=== PATIENT | male | born 1955 | race Caucasian/White ===

== ENCOUNTER 2023-07-03 08:57 | Day surgery (SDC) | payer OTHER, SELFPAY ==
[2023-07-03] VITALS (22 sets, daily range): BP systolic 113–154; BP diastolic 68–98; PULSE 53–94; RESP 16–18; TEMP 35.4–36.9; O2SAT 92–100; BMI 31.6
[2023-07-03] MEDS: CELECOXIB 200 MG CAPSULE PO ×2 (09:07→20:36)
[2023-07-03] MEDS: ACETAMINOPHEN 500 MG TABLET 1000 MG PO ×2 (09:07→18:20)
[2023-07-03] MEDS: OXYCODONE (CR) 10 MG TAB.ER.12H PO (09:07)
[2023-07-03] MEDS: LACTATED RINGERS 1000 ML 1,000 ML 100 ML IV (09:10)
--- NOTE | 2023-07-03 09:23 | W.PM.H&PU ---
History & Physical Update History & Physical Update H&P Reviewed and patient assessed: No changes noted
--- NOTE | 2023-07-03 09:24 | CRLHL7_ITS ---
For Patients: As a result of the Cures Act, medical imaging exams and procedure reports are released immediately into your electronic medical record. You may view this report before your referring provider. If you have questions, please contact your health care provider. Indication: LT POST OP TKA Technique: Two views left knee Findings/Impression: Hardware from a left total knee arthroplasty is in satisfactory position. Bone alignment is normal. No sign of acute fracture. Postop changes are within normal limits. Dictated by Kwabena Comer MD @ 07/04/2023 8:58:40 AM (Electronically Signed)
--- NOTE | 2023-07-03 09:24 | CRLHL7_ITS ---
For Patients: As a result of the Cures Act, medical imaging exams and procedure reports are released immediately into your electronic medical record. You may view this report before your referring provider. If you have questions, please contact your health care provider. Indication: POST OP RT KNEE TKA Technique: Two views right knee Findings/Impression: Hardware from a right total knee arthroplasty is in satisfactory position. Bone alignment is normal. No sign of acute fracture. Postop changes are within normal limits. Dictated by Kwabena Comer MD @ 07/04/2023 8:59:19 AM (Electronically Signed)
[2023-07-03] MEDS: SODIUM CHLORIDE 0.9 % (FLUSH) 10 ML SYRINGE IVF (10:06)
[2023-07-03] MEDS: MIDAZOLAM HCL 1 MG/ML inj IVP (10:30)
[2023-07-03] MEDS: fentaNYL 100 MCG/2 ML inj IVP (10:30)
--- NOTE | 2023-07-03 10:36 | P.NB_ITS ---
Nerve Block Nerve Block Time Seen by Provider: 10:35 Date Seen: 07/03/23 Type of block requested by surgeon for post-operative analgesia: adductor canal Side: bilateral Time out performed: Yes Verification of patient name: Yes Verification of date of : Yes Site marking: site marked Name of person performing procedure: Vito Assistants, if any: Woody Continuous monitoring Was continuous monitoring of O2 sat, B/P, traffic monitor specialist, recorded every 15 minutes?: Yes Procedure Checklist: sterile prep, needles and gloves Ultrasound guided. Images saved: Yes Medications given in 5ml increments after negative aspiration: Ropivicaine %: 0.5 mL: 20 Needle gauge: 20 Decadron (mg): 10 Precedex (mcg): 25 Patient tolerated procedure well: Yes Additional comments: Needle noted adjacent to nerve Block Charges Block Charge (with Pro Fee): Femoral Nerve Use of Ultrasound Machine for Block: Yes- US Guidance/pain block
--- NOTE | 2023-07-03 10:36 | SUR.PREOP ---
TIME?OUT:?1028 PT/RN/MDA?VERIFICATION?OF?SURGICAL?SITE Bilateral Knee's,?PROCEDURE Adductor Canal Block,?AND?CONSENT OBTAINED?PRIOR?TO?INVASIVE?PROCEDURE.
--- NOTE | 2023-07-03 10:38 | W.PM.NB ---
Nerve Block Nerve Block Time Seen by Provider: 10:35 Date Seen: 07/03/23 Type of block requested by surgeon for post-operative analgesia: geniculars Side: bilateral Time out performed: Yes Verification of patient name: Yes Verification of date of : Yes Site marking: site marked Name of person performing procedure: Vito Assistants, if any: Woody Continuous monitoring Was continuous monitoring of O2 sat, B/P, environmental monitoring specialist, recorded every 15 minutes?: Yes Procedure Checklist: sterile prep, needles and gloves Medications given in 5ml increments after negative aspiration: Ropivicaine %: 0.5 mL: 9 Needle gauge: 25 Patient tolerated procedure well: Yes Block Charges Block Charge (with Pro Fee): Genicular Nerve Block Use of Ultrasound Machine for Block: No
--- NOTE | 2023-07-03 10:38 | W.ANESCHARGE ---
Anesthesia Charges Start Date/Time Anesthesia Start Date: 07/03/23 Anesthesia Start Time: 10:53 Stop Date/Time Anesthesia Stop Date: 07/03/23 Anesthesia Stop Time: 15:35
--- NOTE | 2023-07-03 14:49 | P.ORPRC_ITS ---
Procedure Note Date of procedure: 07/03/23 Procedure: PREOPERATIVE DIAGNOSIS: 1. Right knee osteoarthritis, secondary, severe 2. Left knee osteoarthritis, primary, severe 3. Right knee retained deep implant (screws in both proximal tibia and distal femur for prior ACL reconstruction) POSTOPERATIVE DIAGNOSIS: 1. Right knee osteoarthritis, secondary, severe 2. Left knee osteoarthritis, primary, severe 3. Right knee retained deep implant (screws in both proximal tibia and distal femur for prior ACL reconstruction) PROCEDURE: 1. Right total knee arthroplasty 2. Left total knee arthroplasty 3. Right removal of deep implant (proximal tibia and distal femur-ACL screws from remote surgery) SURGEON: Tae George MD. BUFFING MACHINE OPERATOR: Jason Clifford PA-C; Andrew VITAL - Of note, an child welfare assistant was critical for this case to aid in patient positioning, tissue retraction, limb ma nipulation/positioning, patient safety, and closure. ANESTHESIA: General anesthetic IMPLANTS: DePuy J&J uncemented femur and tibia, cemented patella - Press-Fit Attune Right: PS femur size 8, tibia size 8, 8 mm poly spacer, 41 mm patella Left: PS femur size 8 it, tibia size 8, 5 mm poly spacer, 41 mm patella TOURNIQUET: 75 min on the right at 300 torr; 90 min on the left at 300 torr COMPLICATIONS: None evident INDICATIONS: The patient is a pleasant 68-year-old male who has experienced severe bilateral knee pain and difficulty bearing weight. Workup included x- rays which revealed severe osteoarthrosis in both knees. Given the deformity, the dysfunction, and the pain, as well as the failure of nonoperative management, recommendation was made for surgery. DESCRIPTION OF PROCEDURE: Following a thorough discussion of risks, benefits, and alternatives consent was obtained and the right knee was marked. The patient was brought to the operating room and placed supine on the operating table. Induction of anesthesia was undertaken. 2 g IV Ancef and 1 g tranexamic acid was administered within 1 hr of incision preoperatively. An additional 1 g IV Ancef was administered within 10 min of starting the 2nd side. Proper time- out was performed identifying proper patient, site, procedure. Bilateral operative extremities were prepped and draped in the appropriate sterile fashion using ChloraPrep after the patient was positioned supine with all bony prominences well padded. The left leg was initially covered with an extra draped and we began on the right TKA. A longitudinal, anterior, midline skin incision was made starting approximately 3cm proximal to the superior pole of the patella and advanced distal to the tibial tubercle. Severe, extreme osteoarthritis with complete loss of chondral surfaces in all 3 compartments. Retained distal femoral screw proximal tibial screw were in our way the implant position thus these required removal. A median parapatellar arthrotomy was created and a large effusion evacuated. A medial subperiosteal sleeve was created with knife, nieto elevator and curved osteotome. The retropatellar fat pad was resected and the synovium in the suprapatellar pouch excised to visualize the anterior femoral cortex. Femoral preparation was performed via an intramedullary guide. Step drill allowed access into the femoral canal. The canal was suctioned, irrigated, suction, and this process repeated. The distal cutting guide was placed with 5 ? of valgus and 12 mm cut on the distal femur due to significant flexion contracture. Femur was sized using a posterior referencing guide in 3? of external rotation based on the posterior femoral condylar axis and trans epicondylar access/Whitesides line . This found have a best fit with the sizing noted above. The 4 in 1 cutting block was then placed, and the distal femur shaped accordingly. The box cut was then created and the trial implant inserted to confirm appropriate fit. We turned our attention to the proximal tibia. Extramedullary guide was utilized for cutting with the goal of being 90 degree cut from the mechanical axis of the tibia in the varus/valgus plane utilizing tibial crest as the primary alignment. Initially a 1 mm resection was performed from the medial tibial plateau. Ultimately, balancing was achieved in both flexion and extension in both varus and valgus. The knee was able to achieve full extension as well comfortably. The patella was initially measured and found have a thickness of 23 mm. It was resected back to approximately 14 mm. It was sized to be a best fit with as noted above. This was drilled, trial placed. All trials were placed and found to have an excellent stability and balance. At this stage, trial implants were removed, the knee was thoroughly irrigated with normal saline after injecting the posterior capsule with Marcaine with epi, and the cement was mixed. After irrigation, the knee was thoroughly dried, and cement placed, with the real tibial and femoral implants placed along with the patella. Trial poly spacer was placed and confirmed to have excellent range of motion and full extension, and the real poly spacer opened and inserted. All extra cement was removed, and a 3 min Betadine soak performed. Finally, a final irrigation round with normal saline was performed. Closure performed with 0 Vicryl and #0 Stratafix for the quad tendon/retinaculum. The tourniquet was deflated, and 2-0 Vicryl for the subcutaneous and 4-0 Monocryl for subcuticular closure was completed. Dressings were applied and attention was turned to the contralateral left side. This same process was utilized on the contralateral side including same approach, same dissection, same femoral tunnel access and irrigation, extramedullary guide for the tibia, with a similar process for cutting depths, and sizing of femoral & tibial implants. Of note, this contralateral knee also showed severe tricompartmental chondromalacia/chondral loss with grooving of the femoral condyle. There is also abundant distal quadriceps tendinosis and thickening. Large effusion upon entering the joint. Multiple loose bodies seen within this knee consistent with the contralateral knee which also showed multiple loose bodies. The knee was placed through range of motion found to be stable to varus and valgus stress at 0 and 30? as well as with anterior superintendent meter tests all ranges at 15 -30 degree increments. Again a 3 min Betadine soak was performed when the real poly had been opened and inserted, and all remaining cement had been removed. Finally, final round of irrigation was completed with normal saline and closure performed as above with 0 Vicryl, # 0 Stratafix for the quad tendon/retinaculum, 2-0 Vicryl for subcutaneous and 4-0 Monocryl for subcuticular closure. PLAN: 1. Weight bear as tolerated operative extremities. 2. 23 hr perioperative antibiotics. 3. Ice. 4. PT/OT consults for ambulation assistance/mobility education. 5. Social work consult for discharge planning. 6. DVT prophylaxis with at SCDs, Scotty Hose, and aspirin twice daily.
--- NOTE | 2023-07-03 15:44 | W.ANESCHARGE ---
Anesthesia Charges Start Date/Time Anesthesia Start Date: 07/03/23 Anesthesia Start Time: 10:53 Stop Date/Time Anesthesia Stop Date: 07/03/23 Anesthesia Stop Time: 15:35
--- NOTE | 2023-07-03 16:32 | PM.IMCN1 ---
Date of Consult Patient: Other Consult date: 07/03/23 Primary Care Provider: Not a Local Provider ([place] at [facility]) Consult Narrative Reason for consult: Medical management of comorbidities Narrative: Efra Garcia is a 68 year old male who presented to the hospital today for elective bilateral TKAs. There were no surgical or anesthetic complications noted during procedure. Patient's H&P reviewed, PCP is Dr. Echavarria at [facility] (moved to [place] from [place], [place] approximately 4 months ago - plans to establish care with PCP locally). Past medical history significant for: HTN, hyperlipidemia, OA, SUMAYA on CPAP. History of blood clots: No Postoperative plan: Home with , daughter and family also live locally. Review of Systems Status of ROS: Reports: 10 or more systems reviewed and unremarkable except as noted in History and below [facility] Medical History Sleep apnea ?G47.30 - Sleep apnea, unspecified (ICD-10) High cholesterol ?E78.00 - Pure hypercholesterolemia, unspecified (ICD-10) Hypertension ?I10 - Essential (primary) hypertension (ICD-10) Surgical History (Updated 07/03/23 @ 16:56 by Ann-Marie Whitehead MD) Hx of wisdom tooth extraction ?K08.409 - Partial loss of teeth, unspecified cause, unspecified class (ICD-10) Hx of tonsillectomy ?Z90.89 - Acquired absence of other organs (ICD-10) S/P lateral meniscectomy of left knee ?Z98.890 - Other specified postprocedural states (ICD-10) S/P ACL reconstruction ?Z98.890 - Other specified postprocedural states (ICD-10) Social History What is your current living situation?: I presently have a place to live Problems where you live: declined to answer Problems where you live details: NA In the past 12 months, utilities in danger of being shut off: no In the past 12 mos, have been you worried that your food would run out before you had money to buy more?: never true In the past 12 mos, the food you bought just didn't last and you didn't have money to buy more?: never true Smoking Status: Never smoker How often do you have a drink containing alcohol: monthly or less How many standard drinks containing alcohol do you have on a typical day: 1 or 2 AUDIT-C Alcohol total score: 1 Non-prescribed substance use: denies use Caffeine: Yes How often does anyone, including family, friends and others, physically hurt you: never How often does anyone, including family, friends and others, insult or talk down to you: never How often does anyone, including family, friends and others, threaten you with harm: never How often does anyone, including family, friends and others, scream or curse at you: never service: No Meds Home Medications and Allergies Home Medications Medication Instructions Recorded Confirmed Type atorvastatin 20 mg tablet 20 mg PO DAILY 06/14/23 07/03/23 History hydrochlorothiazide 25 mg tablet 25 mg PO DAILY 06/14/23 07/03/23 History lisinopril 10 mg tablet 10 mg PO DAILY 06/14/23 07/03/23 History naproxen sodium 220 mg tablet 220 mg PO BID PRN 06/14/23 07/03/23 History (Aleve) Allergies Allergy/AdvReac Type Severity Reaction Status Date / Time No Known Drug Allergies Allergy Verified 07/03/23 09:18 Exam Narrative: Exam Narrative: GEN: Alert and oriented, sitting up in bed and answering questions appropriately HEENT: EOMIs bilaterally, no scleral icterus. Mild conjunctival injection on the left, patient asymptomatic CV: RRR, No concerning murmurs R: LCTA bilaterally without concerning wheezing, breathing comfortably Ext: wearing Scotty hose bilaterally Skin: No concerning skin lesions or rashes on exposed skin Neuro: Nonfocal Psych: Appropriate Const: Vital Signs, click to edit/add: Vital Signs - 24 hr 07/03/23 09:26 07/03/23 09:27 07/03/23 10:30 Temperature 98.4 F Pulse Rate 57 L 59 L 56 L Respiratory Rate 16 16 16 Blood Pressure 154/84 H 123/74 113/74 Pulse Oximetry 95 95 94 Oxygen Delivery Me thod Room Air Nasal Cannula Nasal Cannula Oxygen Flow Rate 2 2 07/03/23 10:35 07/03/23 15:31 07/03/23 15:36 Temperature 97 F L Pulse Rate 53 L 78 77 Respiratory Rate 16 16 16 Blood Pressure 126/75 118/73 114/72 Pulse Oximetry 96 97 99 Oxygen Delivery Me thod Nasal Cannula OxyMask OxyMask Oxygen Flow Rate 2 10 10 07/03/23 15:41 07/03/23 15:46 07/03/23 15:51 Temperature Pulse Rate 77 71 76 Respiratory Rate 16 16 16 Blood Pressure 131/68 138/85 138/90 H Pulse Oximetry 99 100 100 Oxygen Delivery Me thod OxyMask OxyMask OxyMask Oxygen Flow Rate 10 8 6 07/03/23 15:56 07/03/23 16:01 07/03/23 16:09 Temperature 97 F L Pulse Rate 72 70 73 Respiratory Rate 16 16 16 Blood Pressure 132/85 114/87 132/94 H Pulse Oximetry 100 100 100 Oxygen Delivery Me thod OxyMask Room Air Room Air Oxygen Flow Rate 4 Assessment and Plan Assessment and plan (1) Status post bilateral knee replacements: Problem comment: - 07/03/23, Dr. George Status: Acute Plan - pain management and prophylaxis per orthopedic surgery team - continue home medications for comorbidities - anticipate routine postoperative course
[2023-07-03] MEDS: OXYCODONE 5 MG TABLET PO (18:21)
[2023-07-03] MEDS: CEFAZOLIN 2 GM in 0.9 % SODIUM CHLORIDE Mini-bag 100 ML IVPB (18:22)
[2023-07-03] MEDS: LACTATED RINGERS 1000 ML 1,000 ML 75 ML IV (18:23)
[2023-07-03] MEDS: ONDANSETRON 2 MG/ML inj 4 MG IVP (18:26)
--- NOTE | 2023-07-03 19:06 | PC.NURSE ---
shift note: pt from pacu @ 1620 via bed a&o x3. pt placed on postop vss and cont sats. pt vss stable. pt on RA 93-95%. Pt o/10 pain till 1820 then pain changed to 4/10 bilat knees. pt medicated with prn oxycodone & scheduled tylenol. Pt placed on sachin hugger due to shivering @ 1730. bilat knee drsg c/d/i with cryo cuff in place. PP+ bilat and cap refill + bilat. LS clr. Pt tolerated regular diet. IV patent Lt hand. at bedside.
[2023-07-03] MEDS: HYDROmorphone 0.5 mg/0.5 ml inj IVP (19:39)
[2023-07-03] MEDS: SENNOSIDES 1 TAB TABLET 2 TAB PO (20:35)
[2023-07-03] MEDS: ASPIRIN 81 MG TABLET EC PO (20:36)
[2023-07-04] MEDS: ACETAMINOPHEN 500 MG TABLET 1000 MG PO ×3 (00:01→11:41)
[2023-07-04] MEDS: CEFAZOLIN 2 GM in 0.9 % SODIUM CHLORIDE Mini-bag 100 ML IVPB ×2 (02:24→09:48)
[2023-07-04 03:23] VITALS: BP 116/69; PULSE 96; RESP 18; TEMP 36.8; O2SAT 95
[2023-07-04 06:36] LABS: Basophils Absolute Auto 0.01 K/uL (0.00-0.30); Basophils Percent Auto 0.1 % (0.0-3.0); Hematocrit 36.4 % (37.0-53.0); Hemoglobin* 12.5 gm/dL (13.5-17.5); Immature Granulocytes Abs Auto 0.01 K/uL (0.00-0.30); Immature Granulocytes Pct Auto 0.1 %; Mean Corpuscular HGB Conc 34 gm/dL (32-36); Mean Corpuscular Hemoglobin 32 pg (26-34); Mean Corpuscular Volume 92 fL (80-100); Monocytes Percent Auto 12.1 % (0.0-11.0); Neutrophils Percent Auto 77.7 % (42.0-72.0); Platelet Count* 165 K/uL (140-440); RDW Coefficient of Variation % 12.8 % (11.5-15.5); Red Blood Count 3.96 m/uL (4.30-5.90); White Blood Count* 10.69 K/uL (4.50-11.00)
[2023-07-04 06:37] LABS: Slide Review Reflex No
[2023-07-04 06:48] LABS: Potassium* 3.9 mmol/L (3.6-5.1); Sodium* 135 mmol/L (135-149)
[2023-07-04 06:51] LABS: Blood Urea Nitrogen* 23 mg/dL (7-30); Creatinine* 1.1 mg/dL (0.5-1.5); Est. Creatinine Clearance* 70.36; Estimated Glomerular Filt Rate 74 ml/min
--- NOTE | 2023-07-04 07:00 | PC.NURSE ---
Shift note: Pt is doing will. At 1999, pt attempted to use the BR but was unable ambulate. In effect, preferred to use urinal at the side of the bed. The second attempt at 329 was possible with A2, walker, and GB. Pain level has been rated at 3 managed with scheduled Tylenol. Adequate oral intake and urine output. Saline locked.
[2023-07-04] MEDS: OXYCODONE 5 MG TABLET PO ×3 (08:03→15:41)
--- NOTE | 2023-07-04 08:16 | PM.ORPN ---
Subjective Subjective Date Seen: 07/04/23 Principal diagnosis: Status postop day 1 bilateral total knee arthroplasty Interval history: Patient reports doing well. No acute events over night. His pulses present. Nurse reports assist of 2 to the restroom, doing quite well, minimal pain reports. Proximal aspect of the left knee more painful compared to right. Pain managed with scheduled and PRN medications, ice. DVT prophylaxis: 81 mg aspirin by mouth twice daily, bilateral knee high Scotty stockings, SCDs, walking. Denies fevers, chills, aches, N/V, CP, SOB/DOMINIQUE, or lightheadedness. Ortho Exam Narrative Exam Narrative: -Patient appears comfortable; no apparent acute distress -Alert and oriented times 3 -Bilateral knees mildly swollen; soft tissues supple; no ecchymosis; no erythematous streaking Warmth appropriate. -Surgical dressings clean, dry, intact; no drainage -Bilateral calfs soft; no significant swelling, edema, tenderness, erythema, discoloration, warmth, or palpable cords -2+ DP/PT pulses, intact dermatomes and myotomes distally (5/5 strength). Positive bilateral active quad stimulation Const Vital Signs, click to edit/add: Vital Signs - 24 hr 07/03/23 09:26 07/03/23 09:27 07/03/23 10:30 Temperature 98.4 F Pulse Rate 57 L 59 L 56 L Pulse Rate [Pulse Oximeter] Respiratory Rate 16 16 16 Blood Pressure 154/84 H 123/74 113/74 Blood Pressure [Right Arm] Pulse Oximetry 95 95 94 Oxygen Delivery Method Room Air Nasal Cannula Nasal Cannula Oxygen Flow Rate 2 2 07/03/23 10:35 07/03/23 15:31 07/03/23 15:36 Temperature 97 F L Pulse Rate 53 L 78 77 Pulse Rate [Pulse Oximeter] Respiratory Rate 16 16 16 Blood Pressure 126/75 118/73 114/72 Blood Pressure [Right Arm] Pulse Oximetry 96 97 99 Oxygen Delivery Method Nasal Cannula OxyMask OxyMask Oxygen Flow Rate 2 10 10 07/03/23 15:41 07/03/23 15:46 07/03/23 15:51 Temperature Pulse Rate 77 71 76 Pulse Rate [Pulse Oximeter] Respiratory Rate 16 16 16 Blood Pressure 131/68 138/85 138/90 H Blood Pressure [Right Arm] Pulse Oximetry 99 100 100 Oxygen Delivery Method OxyMask OxyMask OxyMask Oxygen Flow Rate 10 8 6 07/03/23 15:56 07/03/23 16:01 07/03/23 16:09 Temperature 97 F L Pulse Rate 72 70 73 Pulse Rate [Pulse Oximeter] Respiratory Rate 16 16 16 Blood Pressure 132/85 114/87 132/94 H Blood Pressure [Right Arm] Pulse Oximetry 100 100 100 Oxygen Delivery Method OxyMask Room Air Room Air Oxygen Flow Rate 4 07/03/23 16:20 07/03/23 16:20 07/03/23 16:20 Temperature 96.1 F L 96.1 F L 96.1 F L Pulse Rate 73 Pulse Rate [Pulse Oximeter] 74 74 Respiratory Rate 16 16 16 Blood Pressure Blood Pressure [Right Arm] 142/87 H 142/87 H 142/87 H Pulse Oximetry 93 93 Oxygen Delivery Method Room Air Room Air Room Air Oxygen Flow Rate 07/03/23 16:35 07/03/23 16:50 07/03/23 16:50 Temperature 96 F L 96 F L 97 F L Pulse Rate Pulse Rate [Pulse Oximeter] 74 74 77 Respiratory Rate 16 16 16 Blood Pressure Blood Pressure [Right Arm] 142/87 H 146/98 H 146/98 H Pulse Oximetry 94 97 95 Oxygen Delivery Method Room Air Room Air Room Air Oxygen Flow Rate 07/03/23 17:05 07/03/23 17:20 07/03/23 17:50 Temperature 97 F L 97 F L 97 F L Pulse Rate Pulse Rate [Pulse Oximeter] 79 76 94 Respiratory Rate 16 18 18 Blood Pressure Blood Pressure [Right Arm] 142/92 H 147/85 H 119/87 Pulse Oximetry 97 94 94 Oxygen Delivery Method Room Air Room Air Room Air Oxygen Flow Rate 07/03/23 18:20 07/03/23 19:00 07/03/23 20:00 Temperature 95.8 F L 97 F L 97.2 F L Pulse Rate Pulse Rate [Pulse Oximeter] 92 81 93 Respiratory Rate 18 18 18 Blood Pressure Blood Pressure [Right Arm] 131/93 H 129/80 122/73 Pulse Oximetry 95 94 92 Oxygen Delivery Method Room Air Room Air Room Air Oxygen Flow Rate 07/03/23 23:00 07/04/23 03:23 Temperature 98.2 F Pulse Rate Pulse Rate [Pulse Oximeter] 96 Respiratory Rate 18 Blood Pressure Blood Pressure [Right Arm] 116/69 Pulse Oximetry 97 95 Oxygen Delivery Method Room Air Oxygen Flow Rate Assessment and Plan Assessment and plan (1) Status post bilateral knee replacements: Problem details: - 07/03/23, Dr. George Status: Acute Plan - Complete 23 hour perioperative antibiotics. - PT/OT consult for education and assistance. - Social work consult for discharge planning - Prescribed analgesics as needed - DVT prophylaxis: 81 mg aspirin by mouth twice daily, bilateral knee high Scotty Hose stockings and SCDs - Anticipation is for discharge to home with spouse either today (07/04/23) or tomorrow (07/05/23) if the patient remains medically stable, pain is controlled, and they are safe with mobilization. We will see how he does with PT/OT today to determine if he may discharge today or tomorrow. Patient has a few steps in his home to navigate.
[2023-07-04 08:54] VITALS: BP 114/65; PULSE 98; RESP 18; TEMP 36.9; O2SAT 96
[2023-07-04 08:56] VITALS: O2SAT 96
[2023-07-04] MEDS: CELECOXIB 200 MG CAPSULE PO (09:47)
[2023-07-04] MEDS: ASPIRIN 81 MG TABLET EC PO (09:48)
[2023-07-04] MEDS: SENNOSIDES 1 TAB TABLET 2 TAB PO (09:48)
[2023-07-04 12:20] VITALS: BP 122/65; PULSE 71; RESP 18; TEMP 36.6; O2SAT 94
--- NOTE | 2023-07-04 12:55 | PC.NURSE ---
shift note: vss stable. bilat knee drsg c/d/i with cryo cuff in place. PP+ bilat. pt states pain 1-3/10 this a.m and was medicated prior to therapies with pain reported 1-2/10. Pt reported slight nausea this afternoon. Pt received oscar carol and soda crackers.
--- NOTE | 2023-07-04 15:47 | PC.NURSE ---
shift note: reviewed dc instructions with pt and his spouse. pt medicated with 10 mg oxycodone prior to dc due to 2/10 bilat knee pain. Copies of dc instructions sent with pt at dc. Belongings reviewed with pt and sent with pt at dc. Cryo cuff x2 sent with pt at dc. IV dc'd intact lt hand.
== END 2023-07-04 15:49 | disposition home or self-care (01) ==
LOC: MEDSURG 07-04 08:15 → SS 07-04 15:53 → MEDSURG 07-04 15:53
PROVIDERS: Visit Provider Orthopaedic Surgery Sports Medicine
PROC: 0SRC0JZ Replacement of Right Knee Joint with Synthetic Substitute, Open Approach (ICD-10-PCS; CPT 27447; principal; 2023-07-03 11:00)
DX: M17.0 Bilateral primary osteoarthritis of knee (principal); G89.18 Other acute postprocedural pain; I10 Essential (primary) hypertension; G47.33 Obstructive sleep apnea (adult) (pediatric); Z47.2 Encounter for removal of internal fixation device
CPT/HCPCS: 27447; 20680; 1402; 36415; 64447; 64454; 73560; 76942; 82565; 84132; 84295; 84520; 85025; 97110; 97116; 97161; 97165; 97530; A9270; C1776; C9290; J0171; J0665; J0690; J1170; J2250; J2371; J2405; J2704; J3010; J3490; J7120

== ENCOUNTER 2023-07-11 14:47 | Outpatient (CLI) | payer OTHER, SELFPAY ==
--- NOTE | 2023-07-11 15:00 | CRLHL7_ITS ---
For Patients: As a result of the Century Cures Act, medical imaging exams and procedure reports are released immediately into your electronic medical record. You may view this report before your referring provider. If you have questions, please contact your health care provider. INDICATION: RIGHT LEG PAIN, TKA 07/03/23 COMPARISON: None. TECHNIQUE: A compression venous ultrasound exam was performed of the right lower extremity using de guzman-scale imaging, color Doppler and spectral Doppler analysis. FINDINGS: Sonographic imaging of the right lower extremity demonstrates normal compressibility and color Doppler venous blood flow within the common femoral vein, deep femoral vein, and the proximal greater saphenous vein. Within the thigh, the femoral vein is patent and compressible. At a lower level, the popliteal and posterior tibial veins also show normal compressibility and color Doppler venous blood flow. Limited imaging of the contralateral groin demonstrates a normal spectral waveform and color Doppler venous blood flow within the left common femoral vein. IMPRESSION: Normal venous ultrasound exam. No evidence of deep vein thrombosis within the right lower extremity. Dictated by Kwabena Comer MD @ 07/12/2023 9:23:30 AM (Electronically Signed)
== END 2023-07-11 14:48 | disposition home or self-care (01) ==
LOC: US 14:50
PROVIDERS: Visit Provider Physician Assistant Surgical
DX: M79.604 Pain in right leg (principal); Z96.653 Presence of artificial knee joint, bilateral
CPT/HCPCS: 93971

== ENCOUNTER 2023-08-21 10:15 | Outpatient (RCR) | payer OTHER, SELFPAY ==
--- NOTE | 2023-06-24 09:05 | PT.OPEX ---
PT [place] Outpatient Eval PT [facility] Outpatient Eval Start: 06/24/23 07:24 Freq: Status: Active Protocol: Document 06/24/23 09:00 AMINATA (Rec: 06/24/23 09:05 [email or web address] [id number]) E-signed By Nivia Porras, PT Physical Therapy Outpatient Evaluation Insurance Information Recert Due Date 09/18/23 Insurance Name Medicare B Medical Diagnosis Osmar TKA Pre-Op Treating Diagnosis Osmar knee pain Impaired AROM/strength and walking tolerance Referring MD Dr Tae George Subjective Subjective Efra reports having osmar knee pain for many years. Recent DX of OA, but has had ACL and meniscectomy surgeries as well . He walks without any AD, but has used crutches and cane p/ o previously. 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 His walking tolerance is about 20 minutes, tries to walk 1/2 mile 2X/Day for exercise. He and his live in a rambler - 3 steps in from garage, 1 step threshold step. No railings present. They have 2 bathrooms , one with a tub shower, one with walk in shower. They will have access to 2 different shower chairs. He knows he will not be able to drive p/o, his will bring him to the PT sessions - scheduled for 8 weeks. Pain Comments Moderate. He feels his Lt leg is the stronger leg. Had the ACL surgery previously on his Rt knee He has had LBP for the past 4 months (flare up) since moving to [place] Date of Last Physician Visit 06/12/23 Date of Surgery (If applicable) 07/03/23 Current Work Status Retired Preferred Name Efra Precautions Treatment Precautions/Contraindications High Blood Pressure Hypertension Sleep Apnea Lt knee scope Weight Bearing Status Full Weight Bearing Therapy Limitations/Systems Review Not Limited Objective Range of Motion Rt Knee 10-122 deg Lt Knee 10-108 deg Strength 4-/5 osmar knee flex and ext Swelling Mid Pat girth Rt = 43.4 cm / Lt = 44 cm Balance & Gait symmetric WB, SLS 5 sec average osmar. More flat foot strike due to lacking full ext Posture Flattened lumbar spine Assessment Assessment/Impression 68 yo male with Pre-op DX of Osmar TKA which is scheduled for 07/03/23. He arrived this date via IND ambulation without any AD. He ambulates with flat foot strike, lacking full knee ext by 10 deg osmar. Flattened spine and WBOS. His walking tolerance is reported as 20 min or so. He walks 1/2 mile 2X/Day for ex. He lives with his in a one level rambler. 3 steps in from garage, 1 step at front door. He is able to borrow a walker, toilet raise, shower chair for p/o. His AROM is Rt 10-122 deg and Lt 10-108 deg. Mid pat girth is Rt 43.4 cm and Lt 44 cm. He is aware of p/o short term lifestyle changes, his will be driving him to appointments and monitoring use of ice, meds, home ex, etc. He was educated in/is aware of fall prevention and p /o wound care. He will benefit from further p/o PT for progression of gait/balance and strength/ROM. Thank you for this referral. Primary Functional Limitations Pain Reduced AROM Reduced strength Impaired stand/walk tolerance Plan of Care Rehabilitation Potential Good Physical Therapy Goals In One PT Pre-Op Session, we will complete: 1. Education in HEP. MET 2. Education in Fall prevention. MET 3. Education in Adaptive equipment. MET 4. Post/op therapy progression . MET 5. Ambulation with walker and A/D flight of 5 steps. MET *progressive p/o goals will be set at re-evaluation on Coordination/Communication With Referral Source Treatment Plan/Direct Interventions Gait Training,Ice/Cold/ Vasopneumatic,Joint Mobilization,Manual Therapy, Neuromuscular Re-ed,Self-Care/ Home Management,Therapeutic Activities,Therapeutic Exercises Frequency/Duration 2X/Wk X 8 weeks Patient Will Be Discharged From Therapy Completion of LTG(s),Skills Plateau,Independent w/HEP, Independently Progressing Evaluation Billing Untimed Code Treatment Minutes 20 Complexity Moderate Certification Information Initial Certification Date 06/24/23 Ending Certification Date 09/18/23 Provider Signature Shows Agreement With POC & Medical Necessity Physician Signature & Date Requested Please Sign/Date Here Physician Comment/Change : Physician NPI Number #
== END 2023-08-21 14:37 | disposition home or self-care (01) ==
PROVIDERS: Visit Provider Orthopaedic Surgery Sports Medicine
DX: M17.11 Unilateral primary osteoarthritis, right knee (principal); M25.562 Pain in left knee; M25.561 Pain in right knee; Z47.1 Aftercare following joint replacement surgery; Z96.653 Presence of artificial knee joint, bilateral; R53.1 Weakness; Z51.89 Encounter for other specified aftercare
CPT/HCPCS: 97110; 97116; 97140; 97162; 97164

== ENCOUNTER 2024-07-12 21:05 | Emergency (ER) | payer OTHER, SELFPAY ==
[2024-07-12 21:10] VITALS: BP 143/78; PULSE 67; RESP 16; TEMP 36.7; O2SAT 93; BMI 31.9
--- NOTE | 2024-07-12 21:19 | CRLHL7_ITS ---
For Patients: As a result of the Cures Act, medical imaging exams and procedure reports are released immediately into your electronic medical record. You may view this report before your referring provider. If you have questions, please contact your health care provider. Indication: LT 5TH TOE, R/O POSSIBLE DISLOCATION Technique: Three views of the left 5th toe Comparison: None Findings/Impression: Questionable nondisplaced, obliquely oriented, age-indeterminate fracture of the distal shaft of the left 5th proximal phalanx, to correlate with history and point tenderness. Tiny osseous fragment seen along the base of the proximal 5th phalanx, likely sequela of remote injury. No acute malalignment. 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 No suspicious osseous lesions. There may be mild soft tissue swelling of the 5th digit. Dictated by Chandan Osuna MD @ 07/12/2024 10:12:39 PM (Electronically Signed)
--- NOTE | 2024-07-12 22:10 | ED_ITS ---
HPI - General Adult General Date Seen: 07/12/24 Chief complaint: Extremity Pain/Injury, Lower Stated complaint: dislocated left pinky toe Time Seen by Provider: 07/12/24 21:19 Source: patient Mode of arrival: ambulatory Limitations: no limitations History of Present Illness HPI narrative: Patient is a 69-year-old male who was walking barefoot, stubbed his left 5th toe was worried about possible dislocation because he said it was sticking out funny. He says it looks about the same now as it did earlier, does not sound like there was significant deformity that is now improved. He has some tenderness over the proximal toe, denies other injuries. Related Data Home Medications ?Medication ?Instructions ?Recorded ?Confirmed atorvastatin 20 mg tablet 20 mg PO DAILY 06/14/23 07/12/24 hydrochlorothiazide 25 mg tablet 25 mg PO DAILY 06/14/23 07/12/24 lisinopril 10 mg tablet 10 mg PO DAILY 06/14/23 07/12/24 allopurinol 300 mg tablet 300 mg PO DAILY 07/12/24 07/12/24 Allergies Allergy/AdvReac Type Severity Reaction Status Date / Time No Known Drug Allergies Allergy Verified 07/12/24 21:09 [facility] Medical History Sleep apnea ?G47.30 - Sleep apnea, unspecified (ICD-10) High cholesterol ?E78.00 - Pure hypercholesterolemia, unspecified (ICD-10) Hypertension ?I10 - Essential (primary) hypertension (ICD-10) Surgical History History of bilateral knee replacement (07/03/23) ?Z96.653 - Presence of artificial knee joint, bilateral (ICD-10) Hx of wisdom tooth extraction ?K08.409 - Partial loss of teeth, unspecified cause, unspecified class (ICD- 10) Hx of tonsillectomy ?Z90.89 - Acquired absence of other organs (ICD-10) S/P lateral meniscectomy of left knee ?Z98.890 - Other specified postprocedural states (ICD-10) S/P ACL reconstruction ?Z98.890 - Other specified postprocedural states (ICD-10) Social History (Reviewed 09/14/23 @ 09:14 by Edvin Callahan What is your current living situation?: I presently have a place to live Problems where you live: declined to answer Problems where you live details: NA In the past 12 months, utilities in danger of being shut off: no In past 12 months, lack of transportation kept you from medical appts, meetings, work, or getting things needed for daily living: no In the past 12 mos, have been you worried that your food would run out before you had money to buy more?: never true In the past 12 mos, the food you bought just didn't last and you didn't have money to buy more?: never true Smoking Status: Never smoker How often do you have a drink containing alcohol: monthly or less How many standard drinks containing alcohol do you have on a typical day: 1 or 2 AUDIT-C Alcohol total score: 1 Non-prescribed substance use: denies use Caffeine: Yes How often does anyone, including family, friends and others, physically hurt you : never How often does anyone, including family, friends and others, insult or talk down to you: never How often does anyone, including family, friends and others, threaten you with harm: never How often does anyone, including family, friends and others, scream or curse at you: never service: No Exam Narrative: Exam Narrative: Vital signs reviewed In general, alert, well-appearing elderly male. Extremities: Examination of the left foot shows a little bit of swelling at the base of the 5th toe, some tenderness there. I really do not see any deformity, he has a little bit of valgus deformity in both of his 5th toes, this looks symmetric to me. Skin is intact. Const: Vital Signs, click to edit/add: Vital Signs - 24 hr 07/12/24 21:10 Temperature 98.1 F Pulse Rate [Pulse Oximeter] 67 Respiratory Rate 16 Blood Pressure [Ri ght Upper Arm] 143/78 H Pulse Oximetry 93 Oxygen Delivery Me thod Room Air Documenting provider has reviewed patient's vital signs: yes Course Course ED Course: X-rays of the 5th toe by my review do not appear to show an acute fracture or evidence of dislocation, read as follows by Radiology:Findings/Impression: Questionable nondisplaced, obliquely oriented, age-indeterminate fracture of the distal shaft of the left 5th proximal phalanx, to correlate with history and point tenderness. Tiny osseous fragment seen along the base of the proximal 5th phalanx, likely sequela of remote injury. No acute malalignment. 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 No suspicious osseous lesions. There may be mild soft tissue swelling of the 5th digit. Dictated by Chandan Osuna MD @ 07/12/2024 10:12:39 PM Discussed this with him, we will lawrence tape for comfort. He does not have any tenderness of the distal end of the toe so I do not at this time think that this is an acute fracture. He has tenderness at the base of the toe, but that small bone fragment seems to be related to an old injury. In any case, reassured him there is no evidence of dislocation. He can use Tylenol if needed, lawrence tape for comfort. See primary doctor if concerned regarding healing. Vital Signs Vital signs: Initial Vital Signs Temperature 98.1 F 07/12/24 21:10 Temperature Source Temporal Artery Scan 07/12/24 21:10 Pulse Rate 67 07/12/24 21:10 Respiratory Rate 16 07/12/24 21:10 Blood Pressure 143/78 H 07/12/24 21:10 Blood Pressure Mean 99 07/12/24 21:10 Blood Pressure Position High-Fowlers 07/12/24 21:10 Pulse Oximetry 93 07/12/24 21:10 Oxygen Delivery Method Room Air 07/12/24 21:10 Vital Signs Temperature 98.1 F 07/12/24 21:10 Pulse Rate 67 07/12/24 21:10 Respiratory Rate 16 07/12/24 21:10 Blood Pressure 143/78 H 07/12/24 21:10 Pulse Oximetry 93 07/12/24 21:10 Oxygen Delivery Method Room Air 07/12/24 21:10 Temperature 98.1 F 07/12/24 21:10 Pulse Rate 67 07/12/24 21:10 Respiratory Rate 16 07/12/24 21:10 Blood Pressure 143/78 H 07/12/24 21:10 Pulse Oximetry 93 07/12/24 21:10 Oxygen Delivery Method Room Air 07/12/24 21:10 Discharge Plan Discharge Clinical Impression: Injury of toe on left foot Patient Disposition: Home, Self-Care Condition: Stable Additional Instructions: You can lawrence tape your toes for comfort as long as needed. See primary care if concerned about healing. Prescriptions: No Action lisinopril 10 mg tablet 10 mg PO DAILY hydrochlorothiazide 25 mg tablet 25 mg PO DAILY atorvastatin 20 mg tablet 20 mg PO DAILY allopurinol 300 mg tablet 300 mg PO DAILY Follow Up/Referrals: Grover Alexander MD [Primary Care Provider] - Stand Alone Forms: [employer] Info Instructions
== END 2024-07-12 22:32 | disposition home or self-care (01) ==
PROVIDERS: Emergency Provider Emergency Medicine; PCP Family Medicine
DX: S99.922A Unspecified injury of left foot, initial encounter (principal); W22.8XXA Striking against or struck by other objects, initial encounter
CPT/HCPCS: 73660; 99283

== ENCOUNTER 2025-05-03 09:46 | Emergency (ER) | payer MEDICARE, SELFPAY ==
[2025-05-03] VITALS (16 sets, daily range): BP systolic 87–119; BP diastolic 54–98; PULSE 49–58; RESP 16–18; TEMP 35.8; O2SAT 94–96; BMI 31.9
--- OUTSIDE RECORDS SUMMARY | 2025-05-03 09:53 | XMS_ITS | Clinical Summary ---
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 Active atorvastatin (LIPITOR) 20 mg tabletIndication s:Hypercholester olemia Take 1 Tablet (20 mg) by mouth once daily. For Cholesterol. 90 Tablet 3 5 Active hydroCHLOROthiaz john 25 mg tabletIndication s:Essential hypertension Take 1 Tablet (25 mg) by mouth once daily. For blood pressure. 90 Tablet 3 5 Active lisinopriL (PRINIVIL; ZESTRIL) 10 mg tabletIndication s:Essential hypertension Take 1 Tablet (10 mg) by mouth once daily. For blood pressure. 90 Tablet 3 5 Active allopurinoL (ZYLOPRIM) 300 mg tabletIndication s:History of gout Take 1 Tablet (300 mg) by mouth once daily. To prevent gout. 90 Tablet 3 5 Active indomethacin (INDOCIN) 50 mg capsuleIndicatio ns:Gout involving toe of left foot, unspecified cause, unspecified chronicity Take 1 Capsule (50 mg) by mouth three times daily with meals. For gout, use short term. Up to three times daily and then decrease down to off as soon as possible. 21 Capsule 1 5 Active CPAPIndications: Obstructive sleep apnea RESMED CPAP (E0601) machine for home use at pressure:7 cmw, Choice of mask (A7030 or A7034) w/full face cushion (A7031) x1/mo, nasal cushion (A7032) x2/mo, or nasal pillows (A7033) x 2/mo; Length of Need: 99 months; Frequency of use: Daily 1 Each 5 Active triamcinolone (ARISTOCORT; KENALOG) 0.1 % creamIndications :Pruritic rash Apply topically to affected area(s) three times daily. 80 g 4 04/21/20 25 Discontin ued(*Med complete/ Regimen complete/ Level of care change) CPAPIndications: Obstructive sleep apnea CPAP machine for home use at pressure 7cmw, CPAP mask- mask of choice, fit to comfort one per 3 months 1 Each 4 04/21/20 25 Discontin ued(*Med complete/ Regimen complete/ Level of care change) indomethacin (INDOCIN) 50 mg capsuleIndicatio ns:History of gout Take 1 Capsule (50 mg) by mouth three times daily with meals. 21 Capsule 4 04/21/20 25 Discontin ued(*Med complete/ Regimen complete/ Level of care change) Active Problems Problem Noted Date Diagnosed Date SUMAYA 12/29/2012 AHI- 30.7 03/11/2024 PLMD (periodic limb movement disorder) 4 Prediabetes 01/08/2024 Overview (01/08/2024): December 2023: Glucose 102, Hemoglobin A1c 6.2. Primary hypertension 01/08/2024 Overview (01/08/2024): On lisinopril and hydrochlorothiazide when started coming to [facility] December 2023: Hypercholesterolemia 01/08/2024 Overview (01/08/2024): December 2023: On Atorvastatin (Lipitor) started prior to 2023. SUMAYA (obstructive sleep apnea) 01/08/2024 Erectile dysfunction 01/08/2024 Encounters Date Type Department Care Team Description 04/21/2025 9:30 AM CDT Office Visit [facility] [address] [place] [address] Yuriy Escobar MD Sleep Follow-up 04/21/2025 Travel 04/20/2025 Orders Only [facility] Scanner 1 scan: (1-Ord) TORIE, COMPLIANCE REPORT, 04/20/2025 04/17/2025 Travel 02/08/2025 9:45 AM CDT Office Visit [facility] [id number] [place] [address] [address] [place] [address] Yolanda Ca MD Derm Problem 02/08/2025 Travel 02/03/2025 Travel from Last 3 Months Immunizations Immunization Administration Dates Next Due Influenza A (H1N1), Inactivated 12/07/2009 Influenza, High-dose Inactivated 09/08/2024 Influenza, High-dose Quadriv alent Inactivated 10/16/2023 Influenza, IIV3 (Age >=3 years) 08/13/20 17,08/14/2016,08/06/2016,2014,08/17/2014,07/29/2013,08/28/2012,1 ,08/24/2010,07/21/2009, 008 Influenza, IIV4 09/01/2021,08/10/2020 Influenza, IIV4 (=>6mos) MDV 09/08/2019,08/07/20 18 Influenza, Inactivated AIIV4 (Age 65+ Years) Preserv Free 08/06/2022 Pneumococcal Conj 20-valent (Prevnar 20) 01/07/2025 Pneumococcal Poly,23-Valent (Pneumovax) 06/06/2022 Td (Age >=7 Years) 06/19/2007,09/17/2003 Tdap 12/31/2022,11/11/2012 Zoster (Shingrix-RZV, recombinant) 10/31/2020, Zoster (Zostavax-ZVL, live) 12/24/2015 Family History Medical History Relation Name Comments Hypertension Brother Hypertension Father Kidney failure Father Heart attack Mother Hypertension Mother Hypertension Sister 1 Diabetes type I Son Relation Name Status Comments Brother Father Mother Sister 1 Sister 2 Alive Son Alive Social History Tobacco Use Types Packs/Day Years Used Date Smoking Tobacco: Never Passive Smoke Exposure: Never Smokeless Tobacco: Never Tobacco Cessation:Counseling Given: Yes Alcohol Use Standard Drinks/Week Comments Yes 0 (1 standard drink = 0.6 oz pur e alcohol) PHQ-2 Answer Date Recorded PHQ-2 TOTAL SCORE 0 01/07/2025 Social Connections Answer Date Recorded Do you often feel lonely or isolated from those around you? 0 03/06/2024 Financial Resource Strain Answer Date R ecorded Difficulty of Paying Living Expenses 3 03/06/2024 Difficulty of Paying Living Expenses Not on file 03/06/2024 Food Insecurity Answer Date Recorded Do you worry your food will run out before you are able to buy more? 1 03/06/2024 Transportation Needs Answer Date Record ed Does lack of transportation keep you from medica l appointments? 1 03/06/2024 Does lack of transportation keep you from work, meetings or getting things that you need? 1 03/06/2024 Housing Stability Answer Date Recorded What is your housing situation today? 1 03/06/2024 Utilities Answer Date Recorded Do you have trouble paying f or utilities (for example, heat, electricity, water, phone)? 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 Gender Identity Not on file Sexual Orientation Not on file Obstetrics History Last Filed Vital Signs Vital Sign Reading Time Taken Comments Blood Pressure 129/69 04/21/2025 9:23 AM CDT Pulse 51 04/21/2025 9:23 AM CDT Temperature 36.6 C (97.8 F) 03/06/2024 7:58 AM CDT Respiratory Rate - - Oxygen Saturation 97% 04/21/2025 9:23 AM CDT Inhaled Oxygen Concentration - - Weight 104.8 kg (231 lb) 04/21/2025 9:23 AM CDT Height 181.6 cm (5' 11.5) 04/21/2025 9:23 AM CD T Body Mass Index 31.77 04/21/2025 9:23 AM CDT Plan of Treatment Health Maintenance Due Date Last Done Comments COVID-19 vaccine series ( season) 2025 09/08/2024, 10/16/2023, 08/06/2022, Additional history exists Influenza Vaccine (#1) 2025 4, 08/06/2022, 09/01/2021, Additional history exists Depression screening for age 12+ 01/07/2026 01/07/2025, 01/06/2024 Medicare Wellness for age 65+ 01/08/2026 01/07/2025, 01/06/2024 BMI (ht and wt on same day) for age 18+ 04/21/2026 04/21/2025, 01/07/2025, 03/11/2024, Additional history exists Colonoscopy through age 75 03/20/2028 03/20/2023, Lipids for age 45-75 01/07/2030 01/07/2025, 01/06/20 RSV vaccine for adults or (1 - 1-dose 75+ series) 02/02/2032 Tetanus booster 12/31/2032 12/31/2022, 10/28, 06/19/2007, Additional history exists Hepatitis C screening for age 18-79 Addressed 10/22/2019 (Verified in Care Everywhere or Patient Record) Overridden with the intention of not completing the topic Zoster (shingles) series for age 50+ Completed 10/31/2020, 08/26/2020, 12/24/2015 Pneumococcal series for age 50+ Completed 01/07/2025, 06/06/2022 Hepatitis B series for 19+ Aged Out N o longer eligible based on patient's age to complete this topic Procedures Procedure Name Priority Date/Time Associated Diagnosis Comments SCAN-DIAGNOSTIC REPORT 04/20/2025 12:00 AM CDT LIPID PANEL W REFLEX MEASURED LDL Routine 01/07/2025 10:19 AM CDT Hypercholesterolemi a SCAN-COLONOSCOPY 03/20/2023 12:0 0 AM CDT from Last 3 Months or Most Recently Relevant to Health Maintenance Results * SCAN-DIAGNOSTIC REPORT (04/20/2025 12:00 AM CDT) us Scanner OTHER Final Result * LIPID PANEL W REFLEX MEASURED LDL (01/07/2025 10:19 AM CDT) CHOLESTEROL, TOTAL 150 <200 mg/dL [facility] HDL CHOLESTEROL 49 > OR = 40 mg/dL [facility] TRIGLYCERIDES 103 <150 mg/dL [facility] LDL-CHOLESTEROL 81 mg/dL (calc) [facility] Comment: Reference range: <100 Desirable range <100 mg/dL for primary prevention; <70 mg/dL for patients with CHD or diabetic patients with > or = 2 CHD risk factors. LDL-C is now calculated using the Prasad calculation, which is a validated novel method providing better accuracy than the Friedewald equation in the estimation of LDL-C. Alberto SS et al. MIRANDA. 2013;310(19): 7925-2596 (http://education.[employer]/faq/BIA164) CHOL/HDLC RATIO 3.1 <5.0 (calc) Immediately-[facility] NON HDL CHOLESTEROL 101 <130 mg/dL (calc) Immediately-[facility] Comment: For patients with diabetes plus 1 major ASCVD risk factor, treating to a non-HDL-C goal of <100 mg/dL (LDL-C of <70 mg/dL) is considered a therapeutic option. 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 PCP - General 12/03/23 Tae George MD [address] [place] [address] Orthopedics Surgery - Orthopedics 01/06/24
--- NOTE | 2025-05-03 10:12 | CRLHL7_ITS ---
For Patients: As a result of the Century Cures Act, medical imaging exams and procedure reports are released immediately into your electronic medical record. You may view this report before your referring provider. If you have questions, please contact your health care provider. INDICATION: Left posterior back pain after fall off ladder TECHNIQUE: Axial images were obtained from the thoracic inlet to the diaphragm. Reformats: Coronal and sagittal IV Contrast: 75 cc Isovue 370 COMPARISON: None. FINDINGS: Mediastinum: Thoracic aorta is normal in caliber with atherosclerotic calcification. Moderate coronary atherosclerosis. Lungs and Pleural Space: No pneumothorax or pleural effusion. Minimal apical pleural-parenchymal scarring on the right. Trace discoid atelectasis. Chest wall: No masses. Upper abdomen: Cholelithiasis without pericholecystic inflammation. Mild contour deformity at the posterior aspect of the left kidney, probably part of an ill-defined cyst. Suggest follow-up outpatient renal ultrasound for further characterization. Nonobstructing nephrolithiasis. Bones: Right glenohumeral osteoarthritis. Old right 4th through 7th rib fractures anterolaterally. Old right 6th rib fracture posteriorly. Acute nondisplaced left 4th rib fracture posteriorly (3, 34; 4, 116). Acute nondisplaced left 5th rib fracture anteriorly and posteriorly. Acute left 6th rib fracture, comminuted posteriorly with 3 millimeters displacement as well as nondisplaced anterior component. Nondisplaced left 7th rib fracture posteriorly. Nondisplaced left 8th rib fracture posteriorly. IMPRESSION: 1. Acute fractures of the left 4th through 8th ribs without evidence of pneumothorax or pleural effusion. 2. Trace areas of discoid atelectasis. 3. Other incidental findings as detailed above. Please note that all CT scans at this facility use dose modulation, iterative reconstruction, and/or weight-based dosing when appropriate to reduce radiation dose to as low as reasonably achievable. Dictated by Jayson Lora MD @ 05/03/2025 11:43:41 AM (Electronically Signed)
--- NOTE | 2025-05-03 10:27 | ED.GENADULT ---
HPI - General Adult General Date Seen: 05/03/25 Chief complaint: Fall/Minor Trauma Stated complaint: fell of ladder - Time Seen by Provider: 05/03/25 10:07 History of Present Illness HPI narrative: Patient is a 62-year-old male who was up about 5 ft on a ladder working on some [place]. He says his foot slipped forward on the rung of the ladder and has body twisted falling kind of backwards and to the side, landing on concrete. He says that he has pain in his left posterior ribcage and he is worried about a broken rib. He denies hitting his head and denies any neck pain or midline back pain. The fall was witnessed by a neighbor who also notes that he did not have any head injury. He is here with his . He is not anticoagulated. He denies shortness of breath. He does not have abdominal pain. He he has ambulated since then and did not have any hip knee or ankle pain. He does have a bruise on the back of his right lower leg from hitting the ladder which he says is somewhat sore but he is not having difficulty walking on it. Related Data Home Medications ?Medication ?Instructions ?Recorded ?Confirmed atorvastatin 20 mg tablet 20 mg PO DAILY 06/14/23 05/03/25 hydrochlorothiazide 25 mg tablet 25 mg PO DAILY 06/14/23 05/03/25 lisinopril 10 mg tablet 10 mg PO DAILY 06/14/23 05/03/25 allopurinol 300 mg tablet 300 mg PO DAILY 07/12/24 05/03/25 Allergies Allergy/AdvReac Type Severity Reaction Status Date / Time No Known Drug Allergies Allergy Verified 05/03/25 11:09 Review of Systems Status of ROS: Reports: 10 or more systems reviewed and unremarkable except as noted in History and below [facility] Medical History Sleep apnea ?G47.30 - Sleep apnea, unspecified (ICD-10) High cholesterol ?E78.00 - Pure hypercholesterolemia, unspecified (ICD-10) Hypertension ?I10 - Essential (primary) hypertension (ICD-10) Surgical History History of bilateral knee replacement (07/03/23) ?Z96.653 - Presence of artificial knee joint, bilateral (ICD-10) Hx of wisdom tooth extraction ?K08.409 - Partial loss of teeth, unspecified cause, unspecified class (ICD-10) Hx of tonsillectomy ?Z90.89 - Acquired absence of other organs (ICD-10) S/P lateral meniscectomy of left knee ?Z98.890 - Other specified postprocedural states (ICD-10) S/P ACL reconstruction ?Z98.890 - Other specified postprocedural states (ICD-10) Social History What is your current living situation?: I presently have a place to live Problems where you live: declined to answer Problems where you live details: NA In the past 12 months, utilities in danger of being shut off: no In past 12 months, lack of transportation kept you from medical appts, meetings, work, or getting things needed for daily living: no In the past 12 mos, have been you worried that your food would run out before you had money to buy more?: never true In the past 12 mos, the food you bought just didn't last and you didn't have money to buy more?: never true Smoking Status: Never smoker How often do you have a drink containing alcohol: monthly or less How many standard drinks containing alcohol do you have on a typical day: 1 or 2 AUDIT-C Alcohol total score: 1 Non-prescribed substance use: denies use Caffeine: Yes How often does anyone, including family, friends and others, physically hurt you: never How often does anyone, including family, friends and others, insult or talk down to you: never How often does anyone, including family, friends and others, threaten you with harm: never How often does anyone, including family, friends and others, scream or curse at you: never service: No Exam Narrative: Exam Narrative: Primary survey: Airway: Patent. Breathing: Nonlabored. Lungs clear. Circulation: Pulses intact. No external bleeding. Disability: GCS 15. Secondary survey: Vital signs reviewed In general, an alert, nontoxic elderly male. Head: Normocephalic, atraumatic. Eyes: Pupils are equal reactive. Extraocular movements full. ENT: No facial trauma. Dentition intact. Neck: No visible trauma, nontender to palpation throughout. Chest: No visible signs of chest trauma. A couple of areas of mild tenderness over the left lateral and posterior torso, no crepitus or subcu air, no bruising or deformity. Heart is regular rate and rhythm without murmur. Lungs are clear, breath sounds equal. Abdomen: No visible signs of trauma. Soft, nondistended, nontender to palpation. Back: No visible signs of trauma. Nontender to palpation. Pelvis: Stable, nontender. Extremities: Some bruising is noted on the right lower leg posteriorly, there is some tenderness here. There is no bony tenderness or deformity. Other extremities are atraumatic. Neurologic: Alert, conversant, moves all extremities to command. Skin: Warm and dry, no abrasions or lacerations. Const: Vital Signs, click to edit/add: Vital Signs - 24 hr 05/03/25 09:48 05/03/25 10:18 05/03/25 11:09 Temperature 96.5 F L Pulse Rate Pulse Rate [Right Pulse Oximeter] 58 L Respiratory Rate 18 Blood Pressure 116/98 H 113/67 Blood Pressure [Ri ght Upper Arm] 87/54 L Pulse Oximetry 95 96 Oxygen Delivery Me thod Room Air 05/03/25 11:10 05/03/25 11:15 05/03/25 11:22 Temperature Pulse Rate 51 L 52 L Pulse Rate [Right Pulse Oximeter] Respiratory Rate Blood Pressure 102/59 L Blood Pressure [Ri ght Upper Arm] Pulse Oximetry 95 95 94 Oxygen Delivery Me thod 05/03/25 11:23 05/03/25 11:30 05/03/25 11:42 Temperature Pulse Rate 52 L 51 L 49 L Pulse Rate [Right Pulse Oximeter] Respiratory Rate 16 Blood Pressure 106/70 Blood Pressure [Ri ght Upper Arm] Pulse Oximetry 95 94 95 Oxygen Delivery Me thod 05/03/25 11:45 05/03/25 12:00 05/03/25 12:02 Temperature Pulse Rate 50 L 54 L 57 L Pulse Rate [Right Pulse Oximeter] Respiratory Rate Blood Pressure 119/71 Blood Pressure [Ri ght Upper Arm] Pulse Oximetry 96 96 96 Oxygen Delivery Me thod 05/03/25 12:03 05/03/25 12:15 05/03/25 12:22 Temperature Pulse Rate 58 L 54 L 57 L Pulse Rate [Right Pulse Oximeter] Respiratory Rate Blood Pressure 118/79 Blood Pressure [Ri ght Upper Arm] Pulse Oximetry 95 95 95 Oxygen Delivery Me thod 05/03/25 12:30 Temperature Pulse Rate 57 L Pulse Rate [Right Pulse Oximeter] Respiratory Rate Blood Pressure Blood Pressure [Ri ght Upper Arm] Pulse Oximetry 95 Oxygen Delivery Me thod Course Course ED Course: Initial triage vital signs showed hypotension with blood pressure of 87/54, pulse of 58. Repeat blood pressure was 116/98. I did do a fast exam after my initial evaluation. I did not see any evidence of intra-abdominal fluid, pericardial effusion or pneumothorax. The repeat blood pressure is reassuring, will place an IV, give medication for pain and then get a CT scan of the chest. At this time, he does not any have any complaints of head trauma, does not have any tenderness or pain in the spine. For now I think a chest CT is adequate, will add additional imaging if his clinical course evolves. Blood pressures improved, current blood pressure 118/79. Labs are notable for hemoglobin of 12.7 which is at his baseline. Electrolytes normal. CT scan by my review shows multiple left-sided rib fractures, I do not see evidence of hemothorax or pneumothorax. Final radiology report read, they note rib fractures of 4 through 8 without pulmonary complications. No other acute traumatic findings. Discussed these findings with the patient and his . He was initially thinking he would like to try and go home, but as time went on and pain seemed to be more an issue they have restart that and he would like to be admitted to the hospital for pain control. We also discussed possibility of delayed complications. Recommendation is for transfer to a trauma center given the number of rib fractures. He has had morphine for pain control and this has been effective for him. Discussed his care with [facility] and he is accepted for transfer to the ER in [place]. Transfer will be by ground ambulance. An additional dose of morphine given prior to transfer. Vital Signs Vital signs: Initial Vital Signs Temperature 96.5 F L 05/03/25 09:48 Temperature Source Temporal Artery Scan 05/03/25 09:48 Pulse Rate 58 L 05/03/25 09:48 Pulse Rhythm Regular 05/03/25 09:48 Pulse Strength 3+ Normal 05/03/25 09:48 Respiratory Rate 18 05/03/25 09:48 Blood Pressure 87/54 L 05/03/25 09:48 Blood Pressure Mean 65 L 05/03/25 09:48 Blood Pressure Position Sitting 05/03/25 09:48 Pulse Oximetry 95 05/03/25 09:48 Oxygen Delivery Method Room Air 05/03/25 09:48 Vital Signs Temperature 96.5 F L 05/03/25 09:48 Pulse Rate 58 L 05/03/25 09:48 Respiratory Rate 18 05/03/25 09:48 Blood Pressure 87/54 L 05/03/25 09:48 Pulse Oximetry 95 05/03/25 09:48 Oxygen Delivery Method Room Air 05/03/25 09:48 Temperature 96.5 F L 05/03/25 09:48 Pulse Rate 57 L 05/03/25 12:30 Respiratory Rate 16 05/03/25 11:30 Blood Pressure 118/79 05/03/25 12:22 Pulse Oximetry 95 05/03/25 12:30 Oxygen Delivery Method Room Air 05/03/25 09:48 Medications Administered Medications: Discontinued Medications Generic Name Dose Route Start Last Admin Trade Name Beatrice PRN Reason Stop Dose Admin Sodium Chloride 500 mls @ 500 mls/hr 05/03/25 10:12 05/03/25 11:57 0.9 % Sodium Chloride 500 Ml IV 05/03/25 11:11 Infused .Q1H ONE Infusion Morphine Sulfate 4 mg 05/03/25 10:12 05/03/25 11:08 Morphine 4 Mg/Ml Inj IVP 05/03/25 10:13 4 mg ONCE ONE Administration Morphine Sulfate 4 mg 05/03/25 12:33 05/03/25 12:44 Morphine 4 Mg/Ml Inj IVP 05/03/25 12:34 4 mg ONCE ONE Administration Medical Decision Making Lab Data Lab results reviewed: Yes I reviewed the patient's lab results Labs: Lab Results 05/03/25 05/03/25 Range/Units 10:12 10:30 WBC 6.05 (4.50-11.00) K/uL RBC 4.50 (4.30-5.90) m/uL Hgb 12.7 L (13.5-17.5) gm/dL Hct 39.3 (37.0-53.0) % MCV 87 (80-100) fL MCH 28 (26-34) pg MCHC 32 (32-36) gm/dL RDW Coeff of Susi 15.5 (11.5-15.5) % Plt Count 213 (140-440) K/uL Neut % (Auto) 68.7 (42.0-72.0) % Lymph % (Auto) 20.5 (20-44) % Benzie % (Auto) 8.1 (0.0-11.0) % Eos % (Auto) 1.2 (0.0-7.0) % Baso % (Auto) 0.7 (0.0-3.0) % Neut # (Auto) 4.16 (1.7-7.0) K/uL Lymph # (Auto) 1.24 (0.90-2.90) K/uL Benzie # (Auto) 0.50 (0.00-0.90) K/UL Eos # (Auto) 0.07 (0.00-0.50) K/uL Baso # (Auto) 0.04 (0.00-0.30) K/uL Abs Immat Gran (auto) 0.05 (0.00-0.30) K/uL Imm/Tot Granulo (auto) 0.8 % Sodium 136 (135-149) mmol/L Potassium 4.1 (3.6-5.1) mmol/L Chloride 101 (96-114) mmol/L Carbon Dioxide 25 (20-32) mmol/L Anion Gap 10 (7-15) mEq/L BUN 27 (7-30) mg/dL Creatinine 1.3 (0.5-1.5) mg/dL Estimated Creat Clear 59.69 Estimated GFR 60 ml/min Glucose 123 H (60-115) mg/dL Calcium 9.2 (8.4-10.6) mg/dL POC Creatinine 1.4 H (0.6-1.3) mg/dl Imaging Data CT scan - chest: Attestation: I have reviewed the pertinent imaging results. Radiologist's impression: [address] [address] Diagnostic Imaging Report Patient: Efra Garcia MR#: [id number] : 1955 Acct:[id number] Loc: ED Service Date: 05/03/[address]: Ordering Physician: Steffi Carrington M.D. Date of Service: 05/03/25 Procedure(s): CT chest w con Accession Number(s): [id number] cc: Steffi Carrington M.D.; Grover Alexander M.D.~ For Patients: As a result of the Cures Act, medical imaging exams and procedure reports are released immediately into your electronic medical record. You may view this report before your referring provider. If you have questions, please contact your health care provider. INDICATION: Left posterior back pain after fall off ladder TECHNIQUE: Axial images were obtained from the thoracic inlet to the diaphragm. Reformats: Coronal and sagittal IV Contrast: 75 cc Isovue 370 COMPARISON: None. FINDINGS: Mediastinum: Thoracic aorta is normal in caliber with atherosclerotic calcification. Moderate coronary atherosclerosis. Lungs and Pleural Space: No pneumothorax or pleural effusion. Minimal apical pleural-parenchymal scarring on the right. Trace discoid atelectasis. Chest wall: No masses. Upper abdomen: Cholelithiasis without pericholecystic inflammation. Mild contour deformity at the posterior aspect of the left kidney, probably part of an ill-defined cyst. Suggest follow-up outpatient renal ultrasound for further characterization. Nonobstructing nephrolithiasis. Bones: Right glenohumeral osteoarthritis. Old right 4th through 7th rib fractures anterolaterally. Old right 6th rib fracture posteriorly. Acute nondisplaced left 4th rib fracture posteriorly (3, 34; 4, 116). Acute nondisplaced left 5th rib fracture anteriorly and posteriorly. Acute left 6th rib fracture, comminuted posteriorly with 3 millimeters displacement as well as nondisplaced anterior component. Nondisplaced left 7th rib fracture posteriorly. Nondisplaced left 8th rib fracture posteriorly. IMPRESSION: 1. Acute fractures of the left 4th through 8th ribs without evidence of pneumothorax or pleural effusion. 2. Trace areas of discoid atelectasis. 3. Other incidental findings as detailed above. Please note that all CT scans at this facility use dose modulation, iterative reconstruction, and/or weight-based dosing when appropriate to reduce radiation dose to as low as reasonably achievable. Dictated by Jayson Lora MD @ 05/03/2025 11:43:41 AM Discharge Plan Discharge Prescriptions: No Action lisinopril 10 mg tablet 10 mg PO DAILY hydrochlorothiazide 25 mg tablet 25 mg PO DAILY atorvastatin 20 mg tablet 20 mg PO DAILY allopurinol 300 mg tablet 300 mg PO DAILY Follow Up/Referrals: Grover Alexander MD [Primary Care Provider, Family Practice]
[2025-05-03 10:45] LABS: Creatinine, Point-of-Care* 1.4 mg/dl (0.6-1.3)
[2025-05-03] MEDS: MORPHINE 4 MG/ML INJ IVP ×2 (11:08→12:44)
[2025-05-03] MEDS: 0.9 % SODIUM CHLORIDE 500 ML 500 ML IV (11:09)
[2025-05-03 12:08] LABS: Hematocrit 39.3 % (37.0-53.0); Hemoglobin* 12.7 gm/dL (13.5-17.5); Immature Granulocytes Abs Auto 0.05 K/uL (0.00-0.30); Immature Granulocytes Pct Auto 0.8 %; Lymphocytes Absolute Auto 1.24 K/uL (0.90-2.90); Mean Corpuscular HGB Conc 32 gm/dL (32-36); Mean Corpuscular Hemoglobin 28 pg (26-34); Mean Corpuscular Volume 87 fL (80-100); RDW Coefficient of Variation % 15.5 % (11.5-15.5); Red Blood Count 4.50 m/uL (4.30-5.90); White Blood Count* 6.05 K/uL (4.50-11.00)
[2025-05-03 12:15] LABS: Slide Review Reflex No
[2025-05-03 12:23] LABS: Chloride* 101 mmol/L (96-114); Potassium* 4.1 mmol/L (3.6-5.1); Sodium* 136 mmol/L (135-149)
[2025-05-03 12:26] LABS: Anion Gap 10 mEq/L (7-15); Blood Urea Nitrogen* 27 mg/dL (7-30); Calcium* 9.2 mg/dL (8.4-10.6); Carbon Dioxide* 25 mmol/L (20-32); Creatinine* 1.3 mg/dL (0.5-1.5); Est. Creatinine Clearance* 59.69; Estimated Glomerular Filt Rate 60 ml/min; Glucose* 123 mg/dL (60-115)
== END 2025-05-03 13:18 | disposition home or self-care (01) ==
PROVIDERS: Emergency Provider Emergency Medicine; PCP Family Medicine
DX: S22.42XA Multiple fractures of ribs, left side, initial encounter for closed fracture (principal); W11.XXXA Fall on and from ladder, initial encounter; R07.89 Other chest pain
CPT/HCPCS: 36415; 71260; 76604; 76705; 80048; 82565; 85025; 93308; 94761; 96374; 96376; 99284; 99285; J2270; J7030; Q9967

== ENCOUNTER 2025-05-03 13:10 | Outpatient (CLI) | payer MEDICARE, SELFPAY | END 2025-05-03 13:11 | disposition home or self-care (01) | LOC: AMB 05-06 10:23 | PROVIDERS: PCP Family Medicine; Visit Provider Family Medicine | DX: S22.42XA Multiple fractures of ribs, left side, initial encounter for closed fracture (principal) | CPT/HCPCS: A0425; A0427 ==